=== PATIENT | male | born 1995 | race Hispanic/Latino ===

== ENCOUNTER 2017-11-18 21:39 | Emergency (ER) | payer OTHER ==
[2017-11-18] MEDS ORDERED: ACETAMINOPHEN-CODEINE 300/30MG TAB ONE (21:54)
== END 2017-11-18 22:03 | disposition home or self-care (01) ==
LOC: EDH 21:39
DX: T23.122A Burn of first degree of single left finger (nail) except thumb, initial encounter (principal); X12.XXXA Contact with other hot fluids, initial encounter; Y93.G3 Activity, cooking and baking; Y92.89 Other specified places as the place of occurrence of the external cause; Y99.8 Other external cause status
CPT/HCPCS: 99282